=== PATIENT | female | born 1940 | race Caucasian/White ===

== ENCOUNTER 2022-05-20 21:08 | Inpatient (IN) | payer MEDICARE, OTHER ==
[~2022-05-20] VITALS: Ht 165.1 cm; Wt 83.5 kg
--- NOTE | 2022-05-20 21:40 | NUR ---
BIB DRAIN TECHNICIAN C/O ABD PAIN AND BLOOD IN STOOL X2 DAYS. PLACED COMFORTABLY IN BED. VITALS CHECKED. PATIENT IS POOR HISTORIAN BUT AWAKE AND RESPONSIVE TO PAINFUL STIMULI. - SOB, - CP.
--- NOTE | 2022-05-20 21:43 | NUR ---
SEEN BY DR SOSA. GUAIAC TEST DONE AND SENT TO LAB
--- NOTE | 2022-05-20 22:00 | NUR ---
IV CANNULA G18 INSERTED ON LEFT HAND. BLOOD DRAWN AND SENT TO LAB.
--- NOTE | 2022-05-20 22:13 | NUR ---
PT BROUGHT TO RADIOLOGY DEPT
--- NOTE | 2022-05-20 22:13 | NUR ---
COVID SWAB DONE AND SENT TO LAB
--- NOTE | 2022-05-20 22:15 | NUR ---
TRIED PUTTING IN AND OUT CATH. DIFFICULT TO PLACE. MADE AWARE.
[2022-05-20 23:05] LABS: BASOPHILS # (AUTO) 0.1 K/uL (0.0-0.2); BASOPHILS % (AUTO) 0.5 % (0.0-2.0); EOSINOPHILS % (AUTO) 3.1 % (0.0-6.0); HEMATOCRIT 39 % (33-45); HEMOGLOBIN 12.3 g/dL (11.5-14.8); LYMPHOCYTES # (AUTO) 2.2 K/uL (0.8-4.8); LYMPHOCYTES % (AUTO) 11.7 % (20.0-44.0); MEAN CORPUSCULAR HGB CONC 32 g/dl (31.0-36.0); MEAN CORPUSCULAR VOLUME 96 fL (82-100); MONOCYTES % (AUTO) 10.3 % (2.0-12.0); NEUTROPHILS # (AUTO) 14.2 K/uL (1.8-8.9); NEUTROPHILS % (AUTO) 74.4 % (43.0-81.0); PLATELET COUNT (AUTO) 261 K/uL (150-450); RED BLOOD CELL COUNT(AUTO) 4.05 MIL/uL (4.0-5.2); WHITE BLOOD COUNT (AUTO) 19.2 K/uL (4.3-11.0)
[2022-05-20 23:13] LABS: CALCIUM, SERUM 8.3 mg/dL (8.5-10.1); CARBON DIOXIDE 25 mmol/L (21-32); CHLORIDE 107 mmol/L (98-107); GLUCOSE 106 mg/dL (74-106); POTASSIUM 4.4 mmol/L (3.5-5.1); SODIUM SERUM 136 mmol/L (136-145); UREA NITROGEN, BLOOD 20 mg/dL (7-18)
[2022-05-20 23:55] LABS: OCCULT BLOOD STOOL NEGATIVE (NEGATIVE)
--- NOTE | 2022-05-21 00:03 | NUR ---
URINE SPECIMEN SENT TO LAB
--- NOTE | 2022-05-21 00:08 | NUR ---
URINE SPECIMEN SENT TO LAB
[2022-05-21 00:28] LABS: BILIRUBIN,URINE NEGATIVE (NEGATIVE); COLOR,URINE YELLOW (YELLOW); LEUKOCYTE ESTERASE ,URINE MODERATE (NEGATIVE); NITRITE, URINE POSITIVE (NEGATIVE); PH,URINE 5.5 (5.0-8.0); PROTEIN,URINE 30 mg/dl (NEGATIVE); UGLUCOSE NEGATIVE (NEGATIVE); UROBILINOGEN,URINE 0.2 EU/dL (0.2)
[2022-05-21] MEDS ORDERED: ACETAMINOPHEN 325 MG TABLET PO PRN (00:30)
[2022-05-21] MEDS ORDERED: TEMAZEPAM 15 MG CAPSULE PO PRN (00:30)
[2022-05-21] MEDS ORDERED: Z GUARD REMEDY 4 OZ OINT TP PRN (00:30)
[2022-05-21] MEDS ORDERED: HYDROCODONE/APAP 5/325MG TABLET PO PRN (00:30)
[2022-05-21] MEDS ORDERED: MAGNESIUM HYDROXIDE 30 ML UDC PO PRN (00:30)
[2022-05-21] MEDS ORDERED: MORPHINE SULFATE INJ 2 MG/ML DISP.SYRIN IV PRN (00:30)
[2022-05-21] MEDS ORDERED: IV NS 0.9% 1,000 ML IV ONE (00:30)
[2022-05-21] MEDS ORDERED: MAG HYDROX/AL HYDROX/SIMETH 30 ML UDC PO PRN (00:30)
[2022-05-21 00:54] LABS: WBC,URINE TOO NUMEROUS TO COUN /HPF (0-3)
[2022-05-21 00:55] LABS: BACTERIA,URINE Few /HPF (None Seen); SQUAMOUS EPITHELIAL CELL,UR Few /HPF (None Seen)
[2022-05-21] MEDS ORDERED: CEFTRIAXONE 1GM BAG (ER ONLY) 50 ML IV ONE (01:26)
[2022-05-21] MEDS: ENOXAPARIN SODIUM 30 MG/0.3 ML DISP.SYRIN SQ SCH ×2 (01:36→20:38)
[2022-05-21] MEDS: CEFTRIAXONE 1 G in IV D5W 50 ML IV SCH (01:36)
--- NOTE | 2022-05-21 02:49 | NUR ---
BED 307-1
--- NOTE | 2022-05-21 03:10 | NUR ---
ROOM SWITCHED TO [facility]
--- NOTE | 2022-05-21 03:10 | NUR ---
REPORT GIVEN TO DONG IKM
[2022-05-21 03:40] VITALS: BP 134/75
[2022-05-21 03:45] VITALS: BP 134/75
--- NOTE | 2022-05-21 03:48 | NUR ---
MOVED PT TO ROOM
[2022-05-21] MEDS: IV NS 0.9% 1,000 ML IV PRN ×2 (04:28→18:23)
--- NOTE | 2022-05-21 05:30 | NUR ---
ADMITTED PATIENT FROM ED, CAME FROM HOME WITH CAREGIVER, COMPLAINING OF ABDOMINAL PAIN AND BLOOD IN STOOL X2 DAYS. DX OF SEPSIS SECONDARY TO UTI. ALERT/ORIENTED X2, CONFUSED, ABLE TO STATE NAME AND BIRTHDAY, NOT AWARE OF SITUATION. CALM, COOPERATIVE, STABLE ON ROOM AIR, LUNG SOUNDS ARE CLEAR, VS STABLE, AFEBRILE, ABDOMEN IS FIRM ON PALPATION, NO COMPLAIN OF ABDOMINAL PAIN, NO NAUSEA, NO VOMITING. ABLE TO SWALLOW THIN LIQUID AND PUDDING WITHOUT COUGHING. BUTTOCKS REDNESS, PHOTO TAKEN. GIVEN ROCEPHIN AND NS 1L BOLUS.
[2022-05-21 06:38] LABS: BILIRUBIN,DIRECT 0.1 mg/dL (0.0-0.2); BILIRUBIN,TOTAL 0.2 mg/dL (0.2-1.0)
--- NOTE | 2022-05-21 07:30 | NUR ---
MS RN OPENING NOTE Patient in bed, awake. A/O x 2, able to make needs known. On room air, breathing evenly and unlabored. No SOB or s/s of distress noted. IV access on left hand #18 infusing NS at 75 ml/hr. Patient denies any pain or discomfort at this time. Safety precautions in place: bed in low, locked position; siderails up x 2; call light within reach. Will continue to monitor.
[2022-05-21 08:00] VITALS: BP 154/51
[2022-05-21] MEDS: PANTOPRAZOLE 40 MG TABLET.DR PO SCH (09:41)
[2022-05-21] MEDS ORDERED: LORA-259 PO (09:56)
[2022-05-21] MEDS ORDERED: LEVE500T20 PO (09:56)
[2022-05-21] MEDS ORDERED: MELO-107 PO (09:56)
[2022-05-21] MEDS ORDERED: AMLO-212 PO (09:56)
[2022-05-21] MEDS ORDERED: PANT40TA49 PO (09:56)
[2022-05-21] MEDS ORDERED: LEVO25TA76 PO (09:56)
[2022-05-21] MEDS ORDERED: TOPI100T38 PO (09:56)
[2022-05-21] MEDS ORDERED: LORA10TA68 PO (09:56)
[2022-05-21] MEDS ORDERED: ESCI10TA PO (09:56)
[2022-05-21] MEDS ORDERED: GUAI5SYR PO (09:56)
[2022-05-21] MEDS ORDERED: METO5TAB2 PO (09:56)
[2022-05-21] MEDS ORDERED: PHEN100C12 PO (09:56)
[2022-05-21] MEDS ORDERED: ACET-73 PO (09:56)
[2022-05-21] MEDS ORDERED: LISI20TA30 PO (09:56)
[2022-05-21] MEDS ORDERED: CARV3.122 PO (09:56)
[2022-05-21] MEDS ORDERED: ZOLP10TA2 PO (09:56)
[2022-05-21 16:00] VITALS: BP 147/52
--- NOTE | 2022-05-21 19:32 | NUR ---
MS RN CLOSING NOTE Patient in bed, resting. A/O x 2, able to make needs known. Stable on room air, breathing evenly and unlabored. No SOB or s/s of distress noted. IV access on left hand #18 infusing NS at 75 ml/hr. Patient denies any pain or discomfort at this time. Due meds given. All needs attended to. Safety precautions maintained: bed in low, locked position; siderails up x 2; call light within reach. Will endorse to third shift lieutenant nurse for STAR.
--- NOTE | 2022-05-21 19:35 | NUR ---
RN OPENING NOTES RECEIVED PT IN BED, AWAKE. AOx2. ON RA AND TOLERATING WELL. NO SOB NOTED. NO S/SX OF RESPIRATORY DISTRESS NOTED. IV ACCESS IN L HAND #18 G RUNNING NS @ 75 ML/HR. SAFETY PRECAUTIONS IN PLACE : BED IN LOWEST, LOCKED POSITION, SIDERAILS UPx2, AND BRAKES ON. TABLE AND CALL LIGHT WITHIN REACH. WILL CONTINUE TO MONITOR.
[2022-05-21 20:15] VITALS: BP 148/64
[2022-05-22] MEDS: CEFTRIAXONE 1 G in IV D5W 50 ML IV SCH (00:06)
[2022-05-22] MEDS: IV NS 0.9% 1,000 ML IV PRN ×2 (05:59→18:03)
--- NOTE | 2022-05-22 06:50 | NUR ---
RN CLOSING NOTES PT IN BED, ASLEEP, AWAKENS TO VERBAL STIMULI. AOx3-4, WITH CONFUSION. ON RA AND TOLERATING WELL. NO SOB NOTED. NO S/SX OF RESPIRATORY DISTRESS NOTED. IV ACCESS IN L HAND #18 G RUNNING NS @ 75 ML/HR. ALL ORDERS CARRIED OUT. ALL NEEDS MET. PT KEPT CLEAN AND DRY. SAFETY PRECAUTIONS IN PLACE : BED IN LOWEST, LOCKED POSITION, SIDERAILS UPx2, AND BRAKES ON. TABLE AND CALL LIGHT WITHIN REACH. WILL ENDORSE TO ONCOMING SHIFT FOR STAR.
[2022-05-22 07:09] LABS: BASOPHILS # (AUTO) 0.1 K/uL (0.0-0.2); BASOPHILS % (AUTO) 0.5 % (0.0-2.0); EOSINOPHILS % (AUTO) 2.6 % (0.0-6.0); HEMATOCRIT 30 % (33-45); HEMOGLOBIN 9.9 g/dL (11.5-14.8); LYMPHOCYTES # (AUTO) 1.7 K/uL (0.8-4.8); LYMPHOCYTES % (AUTO) 14.4 % (20.0-44.0); MEAN CORPUSCULAR HGB CONC 33 g/dl (31.0-36.0); MEAN CORPUSCULAR VOLUME 94 fL (82-100); MONOCYTES # (AUTO) 1.1 K/uL (0.1-1.30); MONOCYTES % (AUTO) 9.4 % (2.0-12.0); NEUTROPHILS # (AUTO) 8.6 K/uL (1.8-8.9); NEUTROPHILS % (AUTO) 73.1 % (43.0-81.0); PLATELET COUNT (AUTO) 185 K/uL (150-450); RED BLOOD CELL COUNT(AUTO) 3.21 MIL/uL (4.0-5.2); WHITE BLOOD COUNT (AUTO) 11.8 K/uL (4.3-11.0)
[2022-05-22 07:39] LABS: CALCIUM, SERUM 7.8 mg/dL (8.5-10.1); CREATININE 0.7 mg/dL (0.6-1.3); MAGNESIUM 2.1 mg/dL (1.8-2.4); PHOSPHORUS 2.6 mg/dL (2.5-4.9); POTASSIUM 3.7 mmol/L (3.5-5.1)
--- NOTE | 2022-05-22 07:52 | NUR ---
RN OPENING NOTE PATIENT RECEIVED IN BED, AO X 3-4, ABLE TO RESPONDS ALL STIMULI. IN NO ACUTE DISTRESS NOTED. RESPIRATORY EVEN AND UNLABORED ON ROOM AIR. SKIN IS WARM TO TOUCH, KEEP CLEAN/DRY. KEPT ELEVATED HOB FOR ENSURE AIRWAY AND ASPIRATION PRECAUTION, ALSO LOWEST POSITION OF THE BED, S/R UP X 3, BED ALARM IS ON AT ALL THE TIMES. ALL SAFETY PRECAUTION APPLIED. CALL LIGHT WITHIN REACH, WILL CONTINUE TO MONITOR.
[2022-05-22 07:59] LABS: THYROID STIMULATING HORMONE 1.37 uIU/mL (0.358-3.74)
[2022-05-22 08:00] VITALS: BP 123/44
[2022-05-22] MEDS: PANTOPRAZOLE 40 MG TABLET.DR PO SCH (09:01)
[2022-05-22 16:00] VITALS: BP 143/67
--- NOTE | 2022-05-22 18:31 | NUR ---
RN CLOSING NOTE PATIENT IN BED SLEEPING, AO X 3-4, PRESENT. IN NO ACUTE DISTRESS NOTED. RESPIRATORY EVEN AND UNLABORED ON ROOM AIR. SKIN IS WARM TO TOUCH, KEEP CLEAN/DRY. KEPT ELEVATED HOB FOR ENSURE AIRWAY AND ASPIRATION PRECAUTION, BED IN LOWEST POSITION AND LOCK. BED ALARM IS ON AT ALL THE TIMES. SAFETY MEASURED IN PLACED. CALL LIGHT WITHIN REACH, WILL ENDORSED TO NEXT SHIFT.
--- NOTE | 2022-05-22 19:15 | NUR ---
MS RN OPENING NOTE PATIENT AWAKE IN BED, ALERT/ORIENTED X 2-3, PT ABLE TO MAKE NEEDS KNOWN. PT DENIES PAIN AT THIS TIME. PATIENT STABLE ON RA, NO S/S OF DISTRESS OR SOB NOTED, BREATHING EVEN AND UNLABORED. IV ACCESS ON LEFT HAND #18G INTACT AND INFUSING NS @ 75 ML/HR. PATIENT NOTED WITH RIGHT SIDE WEAKNESS D/T HX OF CVA. SAFETY MEASURES IN PLACE: CALL LIGHT WITHIN REACH, SIDE RAILS UP X 2, BED LOCKED IN LOWEST POSITION, HOB ELEVATED, BED ALARM ON. WILL CONTINUE TO MONITOR PATIENT
[2022-05-22 20:00] VITALS: BP 144/68
[2022-05-22] MEDS: ONDANSETRON HCL/PF 4 MG/2 ML VIAL IVP PRN (20:43)
[2022-05-22] MEDS: ENOXAPARIN SODIUM 30 MG/0.3 ML DISP.SYRIN SQ SCH (21:21)
[2022-05-23] MEDS ORDERED: GUAIFENESIN/D-METHORPHAN HB 5 ML UDC PO PRN
[2022-05-23] MEDS: CEFTRIAXONE 1 G in IV D5W 50 ML IV SCH (00:11)
[2022-05-23] MEDS: ONDANSETRON HCL/PF 4 MG/2 ML VIAL IVP PRN (04:15)
[2022-05-23 06:27] LABS: BASOPHILS # (AUTO) 0.1 K/uL (0.0-0.2); BASOPHILS % (AUTO) 0.5 % (0.0-2.0); HEMATOCRIT 31 % (33-45); HEMOGLOBIN 10.5 g/dL (11.5-14.8); LYMPHOCYTES # (AUTO) 1.3 K/uL (0.8-4.8); LYMPHOCYTES % (AUTO) 12.4 % (20.0-44.0); MEAN CORPUSCULAR HGB CONC 34 g/dl (31.0-36.0); MEAN CORPUSCULAR VOLUME 92 fL (82-100); MONOCYTES # (AUTO) 0.8 K/uL (0.1-1.30); MONOCYTES % (AUTO) 7.3 % (2.0-12.0); NEUTROPHILS # (AUTO) 8.3 K/uL (1.8-8.9); NEUTROPHILS % (AUTO) 75.8 % (43.0-81.0); PLATELET COUNT (AUTO) 203 K/uL (150-450); WHITE BLOOD COUNT (AUTO) 10.9 K/uL (4.3-11.0)
[2022-05-23] MEDS: LEVOTHYROXINE SODIUM 25 MCG TABLET PO SCH (07:05)
--- NOTE | 2022-05-23 07:15 | NUR ---
MS RN OPENING NOTES RECEIVED PATIENT AWAKE IN BED RESTING, A/O 2-3. NO S/S OF SOB OR DISCOMFORT, ON ROOM AIR. INCONTINENT, R SIDE WEAKNESS HX OF CVA. SKIN: BUTTOCKS AND B HEEL REDNESS. PATIENT HAS L HAND #18 NS WITH 75 ML/HR RUNNING. INTACT AND PATENT, NO S/S OF INFILTRATION. SAFETY MEASURES IN PLACE: CALL LIGHT WITHIN REACH, SIDE RAILS UP X 2, BED LOCKED IN LOWEST POSITION, HOB ELEVATED, BED ALARM ON. WILL CONTINUE TO MONITOR.
--- NOTE | 2022-05-23 07:20 | NUR ---
MS RN CLOSING NOTE PATIENT AWAKE IN BED, ALERT/ORIENTED X 2, PT ABLE TO MAKE NEEDS KNOWN. PT DENIES PAIN AT THIS TIME. PATIENT STABLE ON RA, NO S/S OF DISTRESS OR SOB NOTED, BREATHING EVEN AND UNLABORED. IV ACCESS ON LEFT HAND #18G INTACT AND INFUSING NS @ 75 ML/HR. PATIENT NOTED WITH RIGHT SIDE WEAKNESS D/T HX OF CVA. PATIENT EXPERIENCED NAUSEA/VOMITING THIS SHIFT WITH 1 EPISODE OF EMESIS, PT ALSO COUGHING UP PHLEGM. MEDICATIONS GIVEN ORDERED, PT NEEDS MET THROUGHOUT SHIFT. SAFETY MEASURES IN PLACE: CALL LIGHT WITHIN REACH, SIDE RAILS UP X 2, BED LOCKED IN LOWEST POSITION, HOB ELEVATED, BED ALARM ON. ENDORSED TO DAY SHIFT NURSE FOR CONTINUITY OF CARE
[2022-05-23] MEDS: PANTOPRAZOLE 40 MG TABLET.DR PO SCH (07:43)
[2022-05-23 08:00] VITALS: BP 148/72
[2022-05-23] MEDS: PHENYTOIN EXTENDED RELEASE 100 MG CAPSULE PO SCH ×3 (08:56→16:15)
[2022-05-23] MEDS: TOPIRAMATE 100 MG TABLET PO SCH (08:56)
[2022-05-23] MEDS: LORATADINE 10 MG TABLET PO SCH (08:56)
[2022-05-23] MEDS: ESCITALOPRAM OXALATE (10 MG) 10 MG TABLET PO SCH (08:56)
[2022-05-23] MEDS: LISINOPRIL (20MG) 20 MG TABLET PO SCH (08:57)
[2022-05-23] MEDS: LEVETIRACETAM (250 MG) 250 MG TABLET PO SCH (08:57)
[2022-05-23] MEDS: AMLODIPINE BESYLATE 5 MG TABLET PO SCH (08:57)
[2022-05-23] MEDS: CARVEDILOL 3.125 MG TABLET PO SCH ×2 (08:57→16:15)
[2022-05-23] MEDS: LORAZEPAM 1 MG TABLET PO SCH ×2 (08:58→16:16)
[2022-05-23] MEDS: MELOXICAM 7.5 MG TABLET PO SCH (08:58)
[2022-05-23] MEDS: METOCLOPRAMIDE HCL 10 MG TABLET PO SCH ×3 (09:10→16:16)
[2022-05-23 09:26] LABS: CREATININE 0.6 mg/dL (0.6-1.3); POTASSIUM 3.5 mmol/L (3.5-5.1)
[2022-05-23] MEDS: IV NS 0.9% 1,000 ML IV PRN (11:35)
--- NOTE | 2022-05-23 12:31 | NUR ---
WOUND CARE CONSULT: PT PRESENTS WITH SACRAL DEEP TISSUE INJURY WHICH IS INTACT, PRESENT ON ADMISSION. PT NOTED TO BE INCONTINENT. RECOMMENDATIONS Becky APPIAH FOR SKIN PROTECTION. DISCUSSED WITH NURSING STAFF. IN AGREEMENT WITH PLAN OF CARE. Addendum: 05/23/22 at 1232 by SUSAN JEREZ WNDNU Amended: Links added.
[2022-05-23 16:00] VITALS: BP 160/64
--- NOTE | 2022-05-23 18:34 | NUR ---
MS RN CLOSING NOTES PATIENT RESTING IN BED, A/O 2-3. NO S/S OF SOB OR DISCOMFORT, STABLE ON ROOM AIR. INCONTINENT, R SIDE WEAKNESS HX OF CVA. SKIN: BUTTOCKS AND B HEEL REDNESS. PATIENT HAS L HAND #18 NS WITH 75 ML/HR RUNNING. INTACT AND PATENT, NO S/S OF INFILTRATION. PUREWICK EXTERNAL CATHETER IN PLACED WITH CLEAR YELLOW URINE OUTPUT NOTED. ALL MEDICATIONS GIVEN. SAFETY MEASURES MAINTAINED: CALL LIGHT WITHIN REACH, SIDE RAILS UP X 2, BED LOCKED IN LOWEST POSITION, HOB ELEVATED, BED ALARM ON. WILL ENDORSE TO NEXT SHIFT ANY STAR.
[2022-05-23] MEDS: MEROPENEM 1 G in IV NS 0.9% 100 ML IV SCH (21:05)
[2022-05-23] MEDS: ENOXAPARIN SODIUM 30 MG/0.3 ML DISP.SYRIN SQ SCH (21:07)
[2022-05-24] MEDS: MEROPENEM 1 G in IV NS 0.9% 100 ML IV SCH ×2 (05:38→13:50)
[2022-05-24 06:44] LABS: BASOPHILS # (AUTO) 0.1 K/uL (0.0-0.2); BASOPHILS % (AUTO) 0.6 % (0.0-2.0); EOSINOPHILS % (AUTO) 4.3 % (0.0-6.0); HEMATOCRIT 33 % (33-45); HEMOGLOBIN 10.7 g/dL (11.5-14.8); LYMPHOCYTES # (AUTO) 1.7 K/uL (0.8-4.8); MEAN CORPUSCULAR HGB CONC 33 g/dl (31.0-36.0); MEAN CORPUSCULAR VOLUME 93 fL (82-100); MONOCYTES # (AUTO) 0.9 K/uL (0.1-1.30); MONOCYTES % (AUTO) 8.6 % (2.0-12.0); NEUTROPHILS # (AUTO) 7.6 K/uL (1.8-8.9); NEUTROPHILS % (AUTO) 70.5 % (43.0-81.0); PLATELET COUNT (AUTO) 235 K/uL (150-450); RED BLOOD CELL COUNT(AUTO) 3.54 MIL/uL (4.0-5.2); WHITE BLOOD COUNT (AUTO) 10.8 K/uL (4.3-11.0)
[2022-05-24] MEDS: LEVOTHYROXINE SODIUM 25 MCG TABLET PO SCH (06:54)
--- NOTE | 2022-05-24 07:42 | NUR ---
MS RN CLOSING NOTE PATIENT AWAKE IN BED, ALERT/ORIENTED X 2-3, PT ABLE TO MAKE NEEDS KNOWN. NO SIGNIFICANT CHANGES THROUGHOUT SHIFT. PT DENIES PAIN AT THIS TIME. PATIENT STABLE ON RA, NO S/S OF DISTRESS OR SOB NOTED, BREATHING EVEN AND UNLABORED. IV ACCESS ON LEFT FOREARM #20G INTACT AND INFUSING NS @ 75 ML/HR. PATIENT NOTED WITH RIGHT SIDE WEAKNESS D/T HX OF CVA. MEDICATIONS GIVEN ORDERED, PT NEEDS MET THROUGHOUT SHIFT. PERWICK IN PLACE FOR INCONTINENCE, PATIENT TURNED Q2H, FOAM DRESSING PLACED IN SACRUM AND BILATERAL HEELS. SAFETY MEASURES IN PLACE: CALL LIGHT WITHIN REACH, SIDE RAILS UP X 3, BED LOCKED IN LOWEST POSITION, HOB ELEVATED, BED ALARM ON. ENDORSED TO DAY SHIFT NURSE FOR CONTINUITY OF CARE
[2022-05-24 08:00] VITALS: BP 158/69
--- NOTE | 2022-05-24 08:00 | NUR ---
RECEIVED PT. IN AM,ALERT AND ORIENTED X2-3.SKIN WARM AND DRY.VITALS STABLE.SIDE RAILS UP,TALKS ON OCCASION.VERY COOPERATIVE AND MED COMPLIANT.PURE WICK FUNCTIONING WELL.
[2022-05-24 08:12] LABS: CALCIUM, SERUM 8.2 mg/dL (8.5-10.1); CARBON DIOXIDE 24 mmol/L (21-32); CHLORIDE 110 mmol/L (98-107); CREATININE 0.8 mg/dL (0.6-1.3); GLUCOSE 82 mg/dL (74-106); MAGNESIUM 2.1 mg/dL (1.8-2.4); PHOSPHORUS 2.4 mg/dL (2.5-4.9); POTASSIUM 3.5 mmol/L (3.5-5.1); SODIUM SERUM 145 mmol/L (136-145); UREA NITROGEN, BLOOD 10 mg/dL (7-18)
[2022-05-24] MEDS ORDERED: ENSURE ENLIVE CHOC 237 ML CAN PO SCH (09:00)
[2022-05-24] MEDS: LORAZEPAM 1 MG TABLET PO SCH ×2 (09:13→17:16)
[2022-05-24] MEDS: LISINOPRIL (20MG) 20 MG TABLET PO SCH (09:14)
[2022-05-24] MEDS: METOCLOPRAMIDE HCL 10 MG TABLET PO SCH ×3 (09:15→17:18)
[2022-05-24] MEDS: AMLODIPINE BESYLATE 5 MG TABLET PO SCH (09:15)
[2022-05-24] MEDS: TOPIRAMATE 100 MG TABLET PO SCH (09:15)
[2022-05-24] MEDS: LEVETIRACETAM (250 MG) 250 MG TABLET PO SCH (09:16)
[2022-05-24] MEDS: MELOXICAM 7.5 MG TABLET PO SCH (09:16)
[2022-05-24] MEDS: ESCITALOPRAM OXALATE (10 MG) 10 MG TABLET PO SCH (09:16)
[2022-05-24] MEDS: CARVEDILOL 3.125 MG TABLET PO SCH ×2 (09:17→17:19)
[2022-05-24] MEDS: LORATADINE 10 MG TABLET PO SCH (09:17)
[2022-05-24] MEDS: PANTOPRAZOLE 40 MG TABLET.DR PO SCH (09:22)
[2022-05-24] MEDS: PHENYTOIN EXTENDED RELEASE 100 MG CAPSULE PO SCH ×3 (09:22→17:19)
--- NOTE | 2022-05-24 12:27 | NUR ---
covid test done and taken to lab.
[2022-05-24] MEDS ORDERED: MERO1PIG IV (13:04)
--- NOTE | 2022-05-24 15:14 | NUR ---
REFUSED DC PHOTOS.
[2022-05-24 16:00] VITALS: BP 122/59
[2022-05-24] MEDS ORDERED: K PHOS NEUTRAL 250 MG TABLET PO ONE (16:30)
[2022-05-24 17:19] VITALS: BP 122/59
--- NOTE | 2022-05-24 17:45 | NUR ---
DR. GREEN IN EARLIER AND WROTE DC ORDER,CALL TO FACILITY WITH STATUS REPORT ON PT.ALL PAPERS SIGNED,BELONGINGS GATHERED UP.REPORT TO AMB. B[facility].TAKEN VIA AMB. TO [place].HEP LOCK LEFT IN FOR ANTIBIOTIC ADM.PT. MADE AWARE.ADDITIONALLY GIVEN K-PHOS REPLACEMENT.
== END 2022-05-24 18:10 | DRG 689 ==
LOC: ER 21:20 → MED 05-21 02:59
PROVIDERS: ADMIT Nurse Practitioner Acute Care; ATTEND Student in an Organized Health Care Education/Training Program
DX: N39.0 Urinary tract infection, site not specified (principal); G93.41 Metabolic encephalopathy; I69.351 Hemiplegia and hemiparesis following cerebral infarction affecting right dominant side; J98.11 Atelectasis; G40.909 Epilepsy, unspecified, not intractable, without status epilepticus; K21.9 Gastro-esophageal reflux disease without esophagitis; F32.A Depression, unspecified; E66.9 Obesity, unspecified; Z68.30 Body mass index [BMI] 30.0-30.9, adult; I10 Essential (primary) hypertension; Z20.822 Contact with and (suspected) exposure to COVID-19; I44.7 Left bundle-branch block, unspecified; I48.91 Unspecified atrial fibrillation; I70.0 Atherosclerosis of aorta; M85.80 Other specified disorders of bone density and structure, unspecified site; Z79.899 Other long term (current) drug therapy; Z90.49 Acquired absence of other specified parts of digestive tract; Z96.641 Presence of right artificial hip joint
CPT/HCPCS: 36415; 80048-TC; 81001; 82247-TC; 82248-TC; 82272-TC; 83605-TC; 83735-TC; 84100-TC; 84443-TC; 84484-TC; 85025-TC; 85730-TC; 86850-TC; 87040-TC; 87081-TC; 87086-TC; 87186-TC; 97112-TC; 97530-TC; A6403; C9803; G0378; J0696; J1650; J2185; J2405; J7030; J7060; J8597